=== PATIENT | male | born 1945 | race Caucasian/White ===

== ENCOUNTER 2020-09-20 07:38 | Day surgery (SDC) | payer BC, SELFPAY ==
[2020-09-15 13:57] VITALS: BMI 26.0
--- NOTE | 2020-09-17 11:14 | P.CONAN_ITS ---
Documented by User: Tiffanie Breen 09/17/20 11:16 HPI - Anesthesia Eval Consult details Narrative: 75yo M for Colonoscopy: screening [facility] Past Medical History Medical History Arthritis Diabetes Elevated cholesterol History of blood transfusion RUDY on CPAP Surgical History Surgical History (Updated 09/15/20 @ 13:44 by Jumana Horton) History of lumbar laminectomy Hx of colonoscopy Hx of tonsillectomy Social History Social History Smoking Status: Former smoker Smoking Quit Date: 1967 Use of substances other than those prescribed or required for medical reasons: No Have you been hit, kicked, punched, or otherwise hurt by someone within the past year? If so, by whom?: No Advance Directives: No Advance Directives Information Provided: No Advance Directives on File: No Recently lost weight without trying: No Meds Allergies Allergy/AdvReac Type Severity Reaction Status Date / Time tetracycline [From Sumycin] Allergy Hives Verified 09/15/20 13:43 Home Medications Medication Instructions Recorded Confirmed Type aspirin [Aspir-81] 81 mg PO DAILY 09/15/20 09/15/20 History bimatoprost [Lumigan] 1 drp OPHTHALMIC (EYE) BEDTIME 09/15/20 09/15/20 History coenzyme Q10 [CoQ-10] 100 mg PO DAILY 09/15/20 09/15/20 History dorzolamide-timolol 1 drp OPHTHALMIC-LEFT BID 09/15/20 09/15/20 History empagliflozin [Jardiance] 1 tab PO DAILY 09/15/20 09/15/20 History ibuprofen 800 mg PO Q8H PRN 09/15/20 09/15/20 History insulin aspart U-100 [Novolog 4 unit SUBCUT 09/15/20 History Flexpen U-100 Insulin] insulin glargine [Lantus Solostar 10 unit SUBCUT BEDTIME 09/15/20 09/15/20 History U-100 Insulin] lisinopril 1 tab PO DAILY 09/15/20 09/15/20 History lutein-zeaxanthin cap PO 09/15/20 History metformin 1 tab PO BID 09/15/20 09/15/20 History prasterone (dhea) [DHEA] 25 mg PO DAILY 09/15/20 09/15/20 History simvastatin 1 tab PO BEDTIME 09/15/20 09/15/20 History Exam Exam Date and Time: September 17, 2020 1114 Height,Weight and Vital Signs: Height 6 ft Weight 87.09 kg Assessment and Plan Assessment Anesthesia Assessment: Chart Reviewed Documented by User: Raúl Blevins 09/20/20 08:40 [facility] Past Medical History Medical History Arthritis Diabetes Elevated cholesterol History of blood transfusion RUDY on CPAP Surgical History Surgical History (Updated 09/15/20 @ 13:44 by Jumana Horton) History of lumbar laminectomy Hx of colonoscopy Hx of tonsillectomy Social History Social History Smoking Status: Former smoker Smoking Quit Date: 1967 Use of substances other than those prescribed or required for medical reasons: No Have you been hit, kicked, punched, or otherwise hurt by someone within the past year? If so, by whom?: No Advance Directives: No Advance Directives Information Provided: No Advance Directives on File: No Recently lost weight without trying: No Meds Allergies Allergy/AdvReac Type Severity Reaction Status Date / Time tetracycline [From Sumycin] Allergy Hives Verified 09/15/20 13:43 Home Medications Medication Instructions Recorded Confirmed Type aspirin [Aspir-81] 81 mg PO DAILY 09/15/20 09/15/20 History bimatoprost [Lumigan] 1 drp OPHTHALMIC (EYE) BEDTIME 09/15/20 09/15/20 History coenzyme Q10 [CoQ-10] 100 mg PO DAILY 09/15/20 09/15/20 History dorzolamide-timolol 1 drp OPHTHALMIC-LEFT BID 09/15/20 09/15/20 History empagliflozin [Jardiance] 1 tab PO DAILY 09/15/20 09/15/20 History ibuprofen 800 mg PO Q8H PRN 09/15/20 09/15/20 History insulin aspart U-100 [Novolog 4 unit SUBCUT 09/15/20 History Flexpen U-100 Insulin] insulin glargine [Lantus Solostar 10 unit SUBCUT BEDTIME 09/15/20 09/15/20 History U-100 Insulin] lisinopril 1 tab PO DAILY 09/15/20 09/15/20 History lutein-zeaxanthin cap PO 09/15/20 History metformin 1 tab PO BID 09/15/20 09/15/20 History prasterone (dhea) [DHEA] 25 mg PO DAILY 09/15/20 09/15/20 History simvastatin 1 tab PO BEDTIME 09/15/20 09/15/20 History Exam Airway Mallampati Class: III TM Dist: >3cm Neck ROM: Full Loose/Missing/Broken Teeth: Yes Heart: RRR Assessment and Plan Assessment Anesthesia Assessment: Anesthesia Plan Discussed Final Anesthetic Review NPO: Yes ASA Class: III Final Preanesthetic Review: Consent Obtained/Reviewed Anesthetic Plan Anesthetic Plan: MAC:
[2020-09-20 08:07] VITALS: BP 135/68; PULSE 61; RESP 18; TEMP 35.9; O2SAT 98
[2020-09-20] MEDS: Lactated Ringers 1,000 ML 100 ML IVCONT (08:12)
[2020-09-20 08:15] LABS: Glucose, Whole Blood 103 mg/dL (60-115)
[2020-09-20 09:49] VITALS: BP 101/59; PULSE 73; RESP 16; TEMP 36.1; O2SAT 96
--- NOTE | 2020-09-20 09:53 | PM.OP ---
Brief Operative Note Date of procedure: 09/20/20 Pre-op diagnosis: Abd pain, screening Post-op diagnosis: other (Gastritis, duodenitis, colon polyp) Procedure: EGD with biopsy, colonoscopy to cecum and TI with biopsy Surgeon: Pradip Wilkerson Anesthesia: MAC Estimated blood loss (mL): 3.0 Pathology: other (A. Gastric antrum B. Proximal stomach C. Polyp at 30 cm) Condition: stable Disposition: PACU
[2020-09-20 10:04] VITALS: BP 123/65; PULSE 53; RESP 18; TEMP 36.1; O2SAT 99
--- NOTE | 2020-09-20 10:10 | OP_ITS ---
SURGEON: Pradip Wilkerson MD INDICATIONS: The patient presents for evaluation of previous abdominal pain and colorectal cancer screening. Full consent has been obtained from him for this, including risks of bleeding and perforation. PREOPERATIVE DIAGNOSIS: POSTOPERATIVE DIAGNOSIS: PROCEDURE PERFORMED: Esophagogastroduodenoscopy with biopsies, and colonoscopy to cecum and terminal ileum with biopsy and removal of polyp. ESTIMATED BLOOD LOSS: COMPLICATIONS: ANESTHESIA: Monitored anesthesia care. ASSISTANTS: SPECIMENS: PREOPERATIVE DIAGNOSES: Colorectal cancer screening and abdominal pain. POSTOPERATIVE DIAGNOSES: Colorectal cancer screening and abdominal pain, duodenitis, gastritis, hiatal hernia, colon polyp, diverticulosis, and internal hemorrhoids. DESCRIPTION OF PROCEDURE: The patient was placed in the left lateral decubitus position. The Olympus video gastroscope was passed in the posterior oropharynx and upper esophagus under direct vision. The scope was passed slowly into the distal esophagus. The gastroesophageal junction appeared normal at 38 cm. There was no sign of any esophagitis nor Corbett's mucosa. The scope was entered into the stomach. There was a small hiatal hernia. The scope was advanced to the pylorus and duodenum cannulated to the descending portion. The duodenum including the bulb was carefully inspected. There was some evidence of some duodenitis with less than 5 mm erosions in the duodenal bulb, but no ulceration or mass. Scope was withdrawn back into the stomach. The gastric antrum and body had changes consistent with a chronic gastritis with some edema and erythema. There were no erosions or ulceration. There was good peristalsis. Scope was retroflexed visualizing the proximal stomach carefully, which appeared normal other than an approximately 10 mm area of gastritis in the proximal stomach. There was no ulceration nor mass. I did obtain biopsies from the gastric antrum and from the area of gastritis in the proximal stomach. The scope was withdrawn back into the esophagus. The esophageal mucosa appeared normal. Scope was withdrawn from the patient. He was turned around for the colonoscopy. The digital rectal exam revealed no abnormalities. The Olympus video pediatric colonoscope was entered into the rectum and advanced easily to the cecum. Once in the cecum, I did identify normal-appearing cecal pouch with appendiceal orifice and a normal-appearing ileocecal valve. The terminal ileum was cannulated and appeared normal. The scope was withdrawn back in the colon. The entire cecum and ileocecal valve appeared normal. The scope was slowly withdrawn assessing all mucosal surfaces carefully. Preparation was excellent. At 30 cm, was a flat approximately 3 or 4 mm polyp, which was biopsied and completely removed with cold biopsy forceps. I did not visualize any other polyps, colitis, nor angiodysplasia. There was a mild amount of sigmoid diverticulosis. In the rectum, scope was retroflexed visualizing small internal hemorrhoids, but no other pathology. The rectal mucosa appeared normal. The scope was straightened out and withdrawn from the patient. He tolerated the procedure well and was returned to the recovery area in stable condition. IMPRESSION: 1. Mild erosive duodenitis. 2. Gastritis. 3. Hiatal hernia. 4. Small colon polyp. 5. Diverticulosis. 6. Internal hemorrhoids. PLAN: The results of the biopsy will be checked. Given the previous history of abdominal pain and today's findings, I suspect he may have had an ulcer that healed. He had been on aspirin daily and was using some ibuprofen. Given these findings today, I advised him to stay off all aspirin and NSAIDs long-term as I do not see any history of underlying coronary artery disease or previous stroke in his medical history. I did advise him to speak with his primary care physician about that as well. I shall start him on famotidine 40 mg each evening. I would have him stay on that 2 months and then p.r.n. thereafter. Given no associated complication in regard to peptic ulcer disease, I do not think he needs to be on long-term H2 blockers. Given the minimal findings on the colonoscopy, I do not think he will need any further screening colonoscopies in the future even if the polyp is a tubular adenoma. This has been discussed with his . If things are stable, he will see me on a p.r.n. basis. MD GENE Yanez/ELOY / [id number] VARSHA
--- NOTE | 2020-09-20 10:42 | HO.POSTANES ---
Post Anesthesia Evaluation Post Anesthesia Evaluation Vital Signs: Vital Signs Temp Pulse Resp BP Pulse Ox 09/20/20 10:04 97 F 53 18 123/65 99 09/20/20 09:49 97 F 73 16 101/59 L 96 09/20/20 08:07 96.7 F L 61 18 135/68 98 Anesthesia: Monitored Mental Status: Awake Pain Control: Satisfactory Nausea/Vomiting: None Hydration: Adequate Anesthesia-Related Issues: No Anes. Related Issues
== END 2020-09-20 11:05 | disposition home or self-care (01) ==
PROVIDERS: PCP Internal Medicine; Visit Provider Internal Medicine
PROC: (CPT 45380; principal; 2020-09-20 08:30)
DX: Z12.11 Encounter for screening for malignant neoplasm of colon (principal); K63.5 Polyp of colon; K57.30 Diverticulosis of large intestine without perforation or abscess without bleeding; K64.8 Other hemorrhoids; K29.50 Unspecified chronic gastritis without bleeding; K29.80 Duodenitis without bleeding; K44.9 Diaphragmatic hernia without obstruction or gangrene; E11.9 Type 2 diabetes mellitus without complications; G47.33 Obstructive sleep apnea (adult) (pediatric); E78.00 Pure hypercholesterolemia, unspecified; Z79.4 Long term (current) use of insulin; Z79.82 Long term (current) use of aspirin; Z79.899 Other long term (current) drug therapy; Z87.891 Personal history of nicotine dependence; Z88.1 Allergy status to other antibiotic agents
CPT/HCPCS: 45380; 43239; 82947; 88305; 88342

== ENCOUNTER 2020-11-03 06:54 | Outpatient (REF) | payer BC, SELFPAY | END 2020-11-03 06:55 | disposition home or self-care (01) | LOC: HO.LAB 06:54 | PROVIDERS: Visit Provider Internal Medicine | DX: Z20.828 Contact with and (suspected) exposure to other viral communicable diseases (principal) | CPT/HCPCS: C9803; U0003 ==

== ENCOUNTER 2021-03-22 10:58 | Outpatient (REF) | payer BC, SELFPAY ==
[2021-03-22 12:23] LABS: Estimated Average Glucose 180 mg/dL; Hemoglobin A1c % 7.9 %
[2021-03-22 12:44] LABS: Alanine Aminotransferase 21 U/L (0-40); Albumin Level 4.1 g/dL (3.5-5.0); Alkaline Phosphatase 65 U/L (39-117); Aspartate Amino Transferase 18 U/L (5-37); Bilirubin Direct 0.2 mg/dL (0.0-0.5); Bilirubin Total 0.3 mg/dL (0.0-1.0); Cholesterol 135 mg/dL; Glucose Fasting 141 mg/dL (60-99); HDL Cholesterol 44 mg/dL; LDL Cholesterol Calculated 74 mg/dl; Total Protein 6.1 g/dL (6.5-8.0); Triglycerides 88 mg/dL
[2021-03-22 12:58] LABS: Reflex LDLD? No
== END 2021-03-22 10:59 | disposition home or self-care (01) ==
LOC: HO.LNP 10:58
PROVIDERS: PCP Internal Medicine; Visit Provider Internal Medicine
DX: E78.00 Pure hypercholesterolemia, unspecified (principal); E11.40 Type 2 diabetes mellitus with diabetic neuropathy, unspecified
CPT/HCPCS: 80061; 80076; 82947; 83036

== ENCOUNTER 2021-10-13 10:32 | Outpatient (REF) | payer BC, SELFPAY ==
[2021-10-13 10:35] LABS: MANUAL DIFF FLAG NO
[2021-10-13 10:55] LABS: Basophils Absolute Auto 0.1 X10*3/uL (0.0-0.2); Eosinophils Absolute Auto 0.3 X10*3/uL (0.0-0.4); Eosinophils Percent Auto 5.2 % (0-4); Hemoglobin 15.2 g/dl (14.0-18.0); Imm Gran Abs Auto 0.01 X10*3/uL (0.00-0.03); Imm Gran Pct Auto 0.2 % (0.0-0.4); Lymphocytes Absolute Auto 1.5 X10*3/uL (1.2-4.9); Lymphocytes Percent Auto 29.1 % (20-40); Mean Corpuscular Hemoglobin 31.3 pg (27.0-33.0); Mean Corpuscular Volume 94.7 fL (80.0-98.0); Mean Platelet Volume 10.1 fL (9.4-12.4); Monocytes Absolute Auto 0.5 X10*3/uL (0.1-1.2); Monocytes Percent Auto 10.1 % (2-11); Neutrophils Absolute Auto 2.8 x10*3/uL (2.0-8.3); Neutrophils Percent Auto 54.4 % (45-73); Platelet Count 248 X10*3/uL (160-400); Red Blood Count 4.86 X10*6/uL (4.60-5.80); White Blood Count 5.2 X10*3/uL (4.8-10.8)
[2021-10-13 11:08] LABS: Alanine Aminotransferase 26 U/L (0-40); Albumin Level 4.2 g/dL (3.5-5.0); Alkaline Phosphatase 56 U/L (39-117); Anion Gap 11 (12-20); Aspartate Amino Transferase 25 U/L (5-37); Bilirubin Total 0.7 mg/dL (0.0-1.0); Blood Urea Nitrogen 19 mg/dL (9-16); Calcium 8.8 mg/dL (8.4-10.2); Carbon Dioxide 26 mmol/L (22-29); Chloride 105 mmol/L (96-108); Cholesterol 158 mg/dL; Estimated Average Glucose 180 mg/dL; Estimated Glomerular Filt Rate > 60; Glucose Fasting 150 mg/dL (60-99); HDL Cholesterol 45 mg/dL; Hemoglobin A1c % 7.9 %; LDL Cholesterol Calculated 92 mg/dl; Potassium 4.4 mmol/L (3.3-5.1); Sodium 138 mmol/L (135-145); Total Protein 6.3 g/dL (6.5-8.0); Triglycerides 106 mg/dL
[2021-10-13 11:12] LABS: Appearance Urine CLEAR; Color Urine YELLOW; Glucose Urine UA >=1000 MG/DL (NEG); Leukocyte Esterase Urine NEG (NEG); Nitrite Urine NEG (NEG); PH 5.5 (5.0-8.0); Specific Gravity - Urine 1.015 (1.005-1.025); Urine Blood NEG (NEG); Urine Ketones 15 MG/DL (NEG); Urine Protein NEG (NEG-TRACE)
[2021-10-13 11:30] LABS: Creatinine Urine 73.58 mg/dL; Microalbumin Urine < 5.0 mg/L
[2021-10-13 11:31] LABS: PSA,Total (Free>4and<10) 0.47 ng/mL (0.00-4.00)
[2021-10-13 11:55] LABS: RBC Urine 0 /HPF (0); Squamous Epithelial Cell Urine TRACE /LPF; WBC Urine 0-2 /HPF (0-4)
== END 2021-10-13 10:33 | disposition home or self-care (01) ==
LOC: HO.LNP 10:32
PROVIDERS: Visit Provider Internal Medicine
DX: Z00.00 Encounter for general adult medical examination without abnormal findings (principal); Z12.5 Encounter for screening for malignant neoplasm of prostate; R79.9 Abnormal finding of blood chemistry, unspecified; I10 Essential (primary) hypertension; E78.00 Pure hypercholesterolemia, unspecified; E11.40 Type 2 diabetes mellitus with diabetic neuropathy, unspecified
CPT/HCPCS: 80053; 80061; 81001; 81003; 82043; 83036; 84153; 85025

== ENCOUNTER 2022-04-10 10:36 | Outpatient (REF) | payer BC, SELFPAY ==
[2022-04-10 11:01] LABS: Alanine Aminotransferase 28 U/L (0-40); Alkaline Phosphatase 59 U/L (39-117); Aspartate Amino Transferase 22 U/L (5-37); Bilirubin Direct 0.3 mg/dL (0.0-0.5); Bilirubin Total 0.6 mg/dL (0.0-1.0); Cholesterol 137 mg/dL; Glucose Fasting 112 mg/dL (60-99); HDL Cholesterol 40 mg/dL; LDL Cholesterol Calculated 82 mg/dl; Total Protein 6.3 g/dL (6.5-8.0); Triglycerides 76 mg/dL
[2022-04-10 11:25] LABS: Estimated Average Glucose 177 mg/dL; Hemoglobin A1c % 7.8 %
[2022-04-10 11:49] LABS: Reflex LDLD? No
== END 2022-04-10 10:37 | disposition home or self-care (01) ==
LOC: HO.LNP 10:36
PROVIDERS: Visit Provider Internal Medicine
DX: E11.40 Type 2 diabetes mellitus with diabetic neuropathy, unspecified (principal); E78.00 Pure hypercholesterolemia, unspecified
CPT/HCPCS: 80061; 80076; 82947; 83036

== ENCOUNTER 2022-10-16 10:56 | Outpatient (REF) | payer BC, SELFPAY ==
[2022-10-16 11:01] LABS: MANUAL DIFF FLAG NO
[2022-10-16 11:35] LABS: Basophils Absolute Auto 0.1 X10*3/uL (0.0-0.2); Basophils Percent Auto 0.7 % (0-2); Eosinophils Absolute Auto 0.1 X10*3/uL (0.0-0.4); Eosinophils Percent Auto 1.4 % (0-4); Hematocrit 46.5 % (42.0-52.0); Hemoglobin 15.1 g/dl (14.0-18.0); Imm Gran Abs Auto 0.03 X10*3/uL (0.00-0.03); Imm Gran Pct Auto 0.4 % (0.0-0.4); Lymphocytes Percent Auto 26.5 % (20-40); Mean Corpuscular HGB Conc 32.5 g/dl (31.0-36.0); Mean Corpuscular Hemoglobin 31.5 pg (27.0-33.0); Mean Corpuscular Volume 96.9 fL (80.0-98.0); Mean Platelet Volume 10.1 fL (9.4-12.4); Monocytes Absolute Auto 0.7 X10*3/uL (0.1-1.2); Monocytes Percent Auto 9.1 % (2-11); Neutrophils Absolute Auto 4.8 x10*3/uL (2.0-8.3); Neutrophils Percent Auto 61.9 % (45-73); Platelet Count 278 X10*3/uL (160-400); White Blood Count 7.7 X10*3/uL (4.8-10.8)
[2022-10-16 11:44] LABS: Appearance Urine Clear; Color Urine Yellow; Glucose Urine UA >=1000 mg/dL (Negative); Leukocyte Esterase Urine Negative (Negative); Nitrite Urine Negative (Negative); PH 5.5 (5.0-9.0); Specific Gravity - Urine >= 1.030 (1.005-1.025); UMIC TRIGGER UA YES; Urine Blood Negative (Negative); Urine Ketones 15 mg/dL (Negative); Urine Protein Negative (Neg-Trace)
[2022-10-16 11:58] LABS: Bacteria Urine None Seen (None Seen); Hyaline Casts Urine 0-2 /LPF (0-2); RBC Urine 0-2 /HPF (0-2); Squamous Epithelial Cell Urine 0-2 /HPF (0-2); WBC Urine 0-5 /HPF (0-5)
[2022-10-16 12:10] LABS: Alanine Aminotransferase 20 U/L (0-40); Albumin Level 4.1 g/dL (3.5-5.0); Alkaline Phosphatase 62 U/L (39-117); Anion Gap 11 (12-20); Aspartate Amino Transferase 19 U/L (5-37); Blood Urea Nitrogen 27 mg/dL (9-16); Carbon Dioxide 26 mmol/L (22-29); Chloride 107 mmol/L (96-108); Cholesterol 142 mg/dL; Estimated Glomerular Filt Rate > 60; Glucose Fasting 107 mg/dL (60-99); HDL Cholesterol 49 mg/dL; LDL Cholesterol Calculated 81 mg/dl; PSA,Total (Free>4and<10) 0.49 ng/mL (0.00-4.00); Potassium 4.8 mmol/L (3.3-5.1); Sodium 139 mmol/L (135-145); Total Protein 6.2 g/dL (6.5-8.0); Triglycerides 64 mg/dL
[2022-10-16 12:22] LABS: Creatinine Urine 92.18 mg/dL; Microalbum/Creatinine Ratio Ur 8.6 ug/mg cr
[2022-10-16 12:29] LABS: Estimated Average Glucose 171 mg/dL; Hemoglobin A1c % 7.6 %
== END 2022-10-16 10:57 | disposition home or self-care (01) ==
LOC: HO.LNP 10:56
PROVIDERS: Visit Provider Internal Medicine
DX: Z00.00 Encounter for general adult medical examination without abnormal findings (principal); Z12.5 Encounter for screening for malignant neoplasm of prostate; E11.40 Type 2 diabetes mellitus with diabetic neuropathy, unspecified; E78.00 Pure hypercholesterolemia, unspecified; I10 Essential (primary) hypertension
CPT/HCPCS: 80053; 80061; 81001; 82043; 83036; 84153; 85025

== ENCOUNTER 2023-04-20 11:52 | Outpatient (REF) | payer BC, SELFPAY ==
[2023-04-20 12:40] LABS: Estimated Average Glucose 171 mg/dL; Hemoglobin A1c % 7.6 %
[2023-04-20 12:47] LABS: Alanine Aminotransferase 25 U/L (0-40); Alkaline Phosphatase 57 U/L (39-117); Aspartate Amino Transferase 23 U/L (5-37); Bilirubin Direct 0.2 mg/dL (0.0-0.5); Bilirubin Total 0.6 mg/dL (0.0-1.0); Cholesterol 134 mg/dL; Glucose Fasting 113 mg/dL (60-99); HDL Cholesterol 47 mg/dL; LDL Cholesterol Calculated 73 mg/dl; Total Protein 5.9 g/dL (6.5-8.0); Triglycerides 73 mg/dL
[2023-04-20 13:31] LABS: Reflex LDLD? No
== END 2023-04-20 11:53 | disposition home or self-care (01) ==
LOC: HO.LNP 11:52
PROVIDERS: Visit Provider Internal Medicine
DX: E11.40 Type 2 diabetes mellitus with diabetic neuropathy, unspecified (principal); E78.00 Pure hypercholesterolemia, unspecified
CPT/HCPCS: 80061; 80076; 82947; 83036

== ENCOUNTER 2023-05-16 12:52 | Outpatient (REF) | payer BC, SELFPAY ==
--- NOTE | ~2023-05-16 | US_ITS ---
EXAMINATION: US VENOUS ULTRASOUND WITH DOPPLER LOWER EXTREMITY, RIGHT CLINICAL INFORMATION: Right leg edema, rule out DVT. COMPARISON: None available. TECHNIQUE: Ultrasound of the deep veins is performed from the hip to the calf with compression sonography and color and pulse Doppler assessment. Spectral analysis with color-flow imaging is performed. FINDINGS: There is normal venous compression and respiratory variation and augmented flow. The visualized common femoral vein, superficial femoral vein, profunda femoral vein, popliteal vein, and the trifurcation region shows no evidence of deep venous thrombosis. No right popliteal cyst. The subcutaneous soft tissues are unremarkable. If the patient's symptoms persist, followup ultrasound in 5 days 7 days might be of value to exclude proximal propagation from a non-visualized calf vein. US/US venous duplex LE RT IMPRESSION: No evidence for deep venous thrombosis in the visualized veins of the right lower extremity.
== END 2023-05-16 12:53 | disposition home or self-care (01) ==
LOC: HO.US 12:52
PROVIDERS: PCP Internal Medicine; Visit Provider Internal Medicine
DX: R60.0 Localized edema (principal)
CPT/HCPCS: 93971

== ENCOUNTER 2023-08-15 09:23 | Outpatient (REF) | payer BC, SELFPAY ==
--- NOTE | 2023-08-15 09:27 | EMG_ITS ---
Please see scanned EMG / Nerve Conduction Report. MTDD
== END 2023-08-15 09:24 | disposition home or self-care (01) ==
LOC: HO.NEURO 09:23
PROVIDERS: PCP Internal Medicine; Visit Provider Internal Medicine
DX: E11.40 Type 2 diabetes mellitus with diabetic neuropathy, unspecified (principal)
CPT/HCPCS: 95885; 95909

== ENCOUNTER 2023-10-25 10:18 | Outpatient (REF) | payer BC, SELFPAY ==
[2023-10-25 10:22] LABS: MANUAL DIFF FLAG NO
[2023-10-25 10:42] LABS: Basophils Absolute Auto 0.1 X10*3/uL (0.0-0.2); Basophils Percent Auto 0.9 % (0-2); Eosinophils Absolute Auto 0.2 X10*3/uL (0.0-0.4); Eosinophils Percent Auto 3.1 % (0-4); Hematocrit 49.6 % (42.0-52.0); Hemoglobin 16.2 g/dl (14.0-18.0); Imm Gran Abs Auto 0.02 X10*3/uL (0.00-0.03); Imm Gran Pct Auto 0.3 % (0.0-0.4); Lymphocytes Absolute Auto 1.5 X10*3/uL (1.2-4.9); Lymphocytes Percent Auto 23.2 % (20-40); Mean Corpuscular HGB Conc 32.7 g/dl (31.0-36.0); Mean Corpuscular Hemoglobin 31.8 pg (27.0-33.0); Mean Corpuscular Volume 97.4 fL (80.0-98.0); Mean Platelet Volume 9.9 fL (9.4-12.4); Monocytes Absolute Auto 0.6 X10*3/uL (0.1-1.2); Monocytes Percent Auto 9.4 % (2-11); Neutrophils Absolute Auto 4.1 x10*3/uL (2.0-8.3); Neutrophils Percent Auto 63.1 % (45-73); Platelet Count 267 X10*3/uL (160-400); Red Blood Count 5.09 X10*6/uL (4.60-5.80); White Blood Count 6.5 X10*3/uL (4.8-10.8)
[2023-10-25 10:50] LABS: Appearance Urine Clear; Color Urine Yellow; Glucose Urine UA >=1000 mg/dL (Negative); Leukocyte Esterase Urine Negative (Negative); Nitrite Urine Negative (Negative); PH 5.5 (5.0-9.0); Specific Gravity - Urine 1.025 (1.005-1.025); UMIC TRIGGER UACC YES; Urine Blood Negative (Negative); Urine Ketones Negative (Negative); Urine Protein Negative (Neg-Trace)
[2023-10-25 10:52] LABS: Estimated Average Glucose 166 mg/dL; Hemoglobin A1c % 7.4 % (<6.0)
[2023-10-25 10:54] LABS: Alanine Aminotransferase 24 U/L (0-40); Albumin Level 4.1 g/dL (3.5-5.0); Alkaline Phosphatase 54 U/L (39-117); Anion Gap 11 (12-20); Aspartate Amino Transferase 23 U/L (5-37); Bacteria Urine None Seen (None Seen); Bilirubin Total 0.6 mg/dL (0.0-1.0); Blood Urea Nitrogen 20 mg/dL (9-16); Calcium 9.4 mg/dL (8.4-10.2); Carbon Dioxide 28 mmol/L (22-29); Chloride 108 mmol/L (96-108); Cholesterol 133 mg/dL (<200); Estimated Glomerular Filt Rate > 60; Glucose Fasting 143 mg/dL (60-99); HDL Cholesterol 44 mg/dL (>40); Hyaline Casts Urine 0-2 /LPF (0-2); LDL Cholesterol Calculated 67 mg/dL (<100); Potassium 4.7 mmol/L (3.3-5.1); RBC Urine 0-2 /HPF (0-2); Sodium 142 mmol/L (135-145); Squamous Epithelial Cell Urine 0-2 /HPF (0-2); Total Protein 6.6 g/dL (6.5-8.0); Triglycerides 110 mg/dL (<150); WBC Urine 0-5 /HPF (0-5)
[2023-10-25 11:18] LABS: PSA,Total (Free>4and<10) 0.51 ng/mL (0.00-4.00)
[2023-10-25 11:21] LABS: Creatinine Urine 49.72 mg/dL; Microalbumin Urine < 5.0 mg/L
== END 2023-10-25 10:19 | disposition home or self-care (01) ==
LOC: HO.LNP 10:18
PROVIDERS: Visit Provider Internal Medicine
DX: Z00.00 Encounter for general adult medical examination without abnormal findings (principal); Z12.5 Encounter for screening for malignant neoplasm of prostate; E11.40 Type 2 diabetes mellitus with diabetic neuropathy, unspecified; I10 Essential (primary) hypertension
CPT/HCPCS: 80053; 80061; 81001; 82043; 82570; 83036; 84153; 85025

== ENCOUNTER 2024-04-24 10:35 | Outpatient (REF) | payer BC, SELFPAY ==
[2024-04-24 11:32] LABS: Estimated Average Glucose 157 mg/dL; Hemoglobin A1c % 7.1 % (<6.0)
[2024-04-24 11:56] LABS: Alanine Aminotransferase 21 U/L (0-40); Albumin Level 4.2 g/dL (3.5-5.0); Alkaline Phosphatase 62 U/L (39-117); Aspartate Amino Transferase 25 U/L (5-37); Bilirubin Direct 0.2 mg/dL (0.0-0.5); Bilirubin Total 0.6 mg/dL (0.0-1.0); Cholesterol 124 mg/dL (<200); Glucose Fasting 93 mg/dL (60-99); HDL Cholesterol 50 mg/dL (>40); LDL Cholesterol Calculated 61 mg/dL (<100); Total Protein 6.4 g/dL (6.5-8.0); Triglycerides 66 mg/dL (<150)
[2024-04-24 12:04] LABS: Reflex LDLD? No
== END 2024-04-24 10:36 | disposition home or self-care (01) ==
LOC: HO.LNP 10:35
PROVIDERS: Visit Provider Internal Medicine
DX: E78.00 Pure hypercholesterolemia, unspecified (principal); E11.40 Type 2 diabetes mellitus with diabetic neuropathy, unspecified
CPT/HCPCS: 80061; 80076; 82947; 83036

== ENCOUNTER 2024-11-04 12:19 | Outpatient (REF) | payer BC, SELFPAY ==
[2024-11-04 12:22] LABS: MANUAL DIFF FLAG NO
[2024-11-04 12:39] LABS: Basophils Percent Auto 0.8 % (0-2); Eosinophils Absolute Auto 0.2 X10*3/uL (0.0-0.4); Eosinophils Percent Auto 3.3 % (0-4); Hematocrit 45.5 % (42.0-52.0); Hemoglobin 14.7 g/dl (14.0-18.0); Imm Gran Abs Auto 0.01 X10*3/uL (0.00-0.03); Imm Gran Pct Auto 0.2 % (0.0-0.4); Lymphocytes Absolute Auto 1.4 X10*3/uL (1.2-4.9); Lymphocytes Percent Auto 27.7 % (20-40); Mean Corpuscular HGB Conc 32.3 g/dl (31.0-36.0); Mean Corpuscular Hemoglobin 31.8 pg (27.0-33.0); Mean Corpuscular Volume 98.5 fL (80.0-98.0); Mean Platelet Volume 10.2 fL (9.4-12.4); Monocytes Absolute Auto 0.5 X10*3/uL (0.1-1.2); Neutrophils Absolute Auto 2.8 x10*3/uL (2.0-8.3); Platelet Count 215 X10*3/uL (160-400); Red Blood Count 4.62 X10*6/uL (4.60-5.80); Red Cell Distribution Width 13.7 % (11.0-16.0); White Blood Count 4.9 X10*3/uL (4.8-10.8)
[2024-11-04 12:45] LABS: Appearance Urine Clear; Color Urine Yellow; Glucose Urine UA >=1000 mg/dL (Negative); Leukocyte Esterase Urine Negative (Negative); Nitrite Urine Negative (Negative); PH 5.5 (5.0-9.0); Specific Gravity - Urine 1.025 (1.005-1.025); UMIC TRIGGER UACC YES; Urine Blood Negative (Negative); Urine Ketones 15 mg/dL (Negative); Urine Protein Negative (Neg-Trace)
[2024-11-04 12:48] LABS: Alanine Aminotransferase 23 U/L (0-40); Albumin Level 3.9 g/dL (3.5-5.0); Alkaline Phosphatase 53 U/L (39-117); Anion Gap 12 (12-20); Aspartate Amino Transferase 30 U/L (5-37); Bilirubin Total 0.9 mg/dL (0.0-1.0); Blood Urea Nitrogen 19 mg/dL (9-16); Calcium 8.4 mg/dL (8.4-10.2); Carbon Dioxide 28 mmol/L (22-29); Chloride 106 mmol/L (96-108); Cholesterol 121 mg/dL (<200); Estimated Glomerular Filt Rate > 60; Glucose Fasting 140 mg/dL (60-99); HDL Cholesterol 47 mg/dL (>40); LDL Cholesterol Calculated 60 mg/dL (<100); Potassium 4.7 mmol/L (3.3-5.1); Sodium 141 mmol/L (135-145); Total Protein 6.2 g/dL (6.5-8.0); Triglycerides 74 mg/dL (<150)
[2024-11-04 12:49] LABS: Estimated Average Glucose 171 mg/dL; Hemoglobin A1c % 7.6 % (<6.0); Total Hemoglobin (HGBA1C) 3648.8359 umol/L
[2024-11-04 12:50] LABS: Bacteria Urine None Seen (None Seen); Hyaline Casts Urine 0-2 /LPF (0-2); RBC Urine 0-2 /HPF (0-2); Squamous Epithelial Cell Urine 0-2 /HPF (0-2); WBC Urine 0-5 /HPF (0-5)
[2024-11-04 13:10] LABS: PSA,Total (Free>4and<10) 0.67 ng/mL (0.00-4.00)
[2024-11-04 13:17] LABS: Creatinine Urine 54.18 mg/dL; Microalbumin Urine < 5.0 mg/L
== END 2024-11-04 12:20 | disposition home or self-care (01) ==
LOC: HO.LNP 12:19
PROVIDERS: Visit Provider Internal Medicine
DX: Z00.00 Encounter for general adult medical examination without abnormal findings (principal); I10 Essential (primary) hypertension; E11.40 Type 2 diabetes mellitus with diabetic neuropathy, unspecified; E78.00 Pure hypercholesterolemia, unspecified; Z12.5 Encounter for screening for malignant neoplasm of prostate
CPT/HCPCS: 80053; 80061; 81001; 82043; 82570; 83036; 84153; 85025

== ENCOUNTER 2025-11-09 10:42 | Outpatient (REF) | payer MEDICARE, SELFPAY ==
[2025-11-09 10:46] LABS: MANUAL DIFF FLAG NO
[2025-11-09 11:10] LABS: Hematocrit 39.8 % (42.0-52.0); Hemoglobin 12.9 g/dl (14.0-18.0); Imm Gran Abs Auto 0.02 X10*3/uL (0.00-0.03); Imm Gran Pct Auto 0.3 % (0.0-0.4); Lymphocytes Absolute Auto 1.4 X10*3/uL (1.2-4.9); Mean Corpuscular HGB Conc 32.4 g/dl (31.0-36.0); Mean Corpuscular Hemoglobin 31.5 pg (27.0-33.0); Mean Corpuscular Volume 97.1 fL (80.0-98.0); NRBC Abs Auto 0.000 X10*3/uL (0.0-0.012); NRBC Pct Auto 0.0 /100WBC (0.0-0.2); Platelet Count 325 X10*3/uL (160-400); Red Blood Count 4.10 X10*6/uL (4.60-5.80); White Blood Count 7.1 X10*3/uL (4.8-10.8)
[2025-11-09 11:15] LABS: Appearance Urine Clear; Glucose Urine UA >=1000 mg/dL (Negative); PH 5.5 (5.0-9.0); Specific Gravity - Urine >= 1.030 (1.005-1.025); UMIC TRIGGER UACC YES
[2025-11-09 11:22] LABS: Alanine Aminotransferase 16 U/L (0-40); Albumin Level 4.0 g/dL (3.5-5.0); Alkaline Phosphatase 92 U/L (39-117); Anion Gap 12 (12-20); Aspartate Amino Transferase 28 U/L (5-37); Blood Urea Nitrogen 26 mg/dL (9-16); Calcium 9.0 mg/dL (8.4-10.2); Carbon Dioxide 27 mmol/L (22-29); Chloride 107 mmol/L (96-108); Cholesterol 105 mg/dL (<200); Estimated Glomerular Filt Rate > 60; HDL Cholesterol 34 mg/dL (>40); Potassium 4.4 mmol/L (3.3-5.1); Sodium 142 mmol/L (135-145); Total Protein 6.2 g/dL (6.5-8.0); Triglycerides 75 mg/dL (<150)
[2025-11-09 11:44] LABS: PSA,Total (Free>4and<10) 0.81 ng/mL (0.00-4.00)
[2025-11-09 11:49] LABS: Microalbum/Creatinine Ratio Ur 5.7 ug/mg cr (<30)
--- OUTSIDE RECORDS SUMMARY | 2025-11-09 14:54 | XMS_ITS | Encounter Summary ---
Author Organization [facility] Address [address] [facility] [address] [place] [phone] Phone Care Team Providers Care County Treasurer Name Role Phone Perez Randall MD Primary Care Provider Encounter Details Date Type Department Care Team (Late st Contact Info) Description 11/13/2023 Procedure Pass [address] [place] [id number] Social History Tobacco Use Types Packs/Day Years Used Date Smoking Tobacco: Never Smokeless Tobacco: Never Alcohol Use Standard Drinks/Week Comments Never 0 (1 standard drink = 0.6 oz pur e alcohol) Education Answer Date Recorded Are you interested in more education? Not on benny e 03/24/2023 Are you concerned about learning? Not on file 03/24/2023 No 03/24/2023 No 03/24/2023 Digital Access Answer Date Recorded No 04/22/2023 No 04/22/2023 Reliable internet access at home? Not on file 04/22/2023 Device with a working camera? Not on file Sex and Gender Information Value Date Recorded Sex Assigned at Male 11/23/2023 3:37 PM EST Legal Sex Male 10:15 AM EST Gender Identity Male 11/23/2023 3:37 PM EST Sexual Orientation Not on file documented as of this encounter Plan of Treatment Not on file documented as of this encounter Visit Diagnoses Not on filedocumented in this encounter Care Teams County Treasurer Relationship Specialty Start Date End Date Perez Randall MD [address] [place] [address] [place] [address] PCP - General Internal Medicine 10/25/21 documented as of this encounter Additional Source Comments The information contained in this document represents components of the legal health record. It is not the complete legal health record.[facility]
--- OUTSIDE RECORDS SUMMARY | 2025-11-09 14:54 | XMS_ITS | Encounter Summary ---
Author Organization [facility] Address [address] [place] [phone] Phone Care Team Providers Care Horizontal Drill Operator Name Role Phone Perez Randall MD Primary Care Provider Encounter Details Date Type Department Care Team (Late st Contact Info) Description 10/25/2021 Procedure Pass [facility] [address] [place] [address] Social History Tobacco Use Types Packs/Day Years Used Date Smoking Tobacco: Never Assessed Sex and Gender Information Value Date Recorded Sex Assigned at Male 11/23/2023 3:37 PM EST Legal Sex Male 10:15 AM EST Gender Identity Male 11/23/2023 3:37 PM EST Sexual Orientation Not on file documented as of this encounter Plan of Treatment Not on file documented as of this encounter Visit Diagnoses Not on filedocumented in this encounter Care Teams Horizontal Drill Operator Relationship Specialty Start Date End Date Perez Randall MD [address] [place] [address] [place] [address] PCP - General Internal Medicine 10/25/21 documented as of this encounter Additional Source Comments The information contained in this document represents components of the legal health record. It is not the complete legal health record.[facility]
--- OUTSIDE RECORDS SUMMARY | 2025-11-09 14:54 | XMS_ITS | Clinical Summary ---
Author Organization [facility] Address [facility] [employer] [address] [address] Phone Care Team Providers Care Mortgage Branch Manager Name Role Phone Perez Randall MD Primary Care Provider Allergies Active Allergy Reactions Criticality Noted Date Comments Atorvastatin 01/01/2020 Other reaction(s): Weakness present Sumycin 250 Hives,Swelling 02/10/2022 Other tetracyclines ok Tetracycline Hives 07/16/2013 Medications rosuvastatin (CRESTOR) 20 MG tablet 2 Active mupirocin (BACTROBAN) 2 % ointment 2 Active metFORMIN (GLUCOPHAGE) 500 MG tablet Take 1 tablet by mouth 2 (two) times a day. 2 Active LANTUS SOLOSTAR U-100 INSULIN 100 unit/mL (3 mL) InPn injection pen 2 Active insulin aspart U-100 (NOVOLOG) 100 unit/mL (3 mL) injection pen INJECT 2 UNITS SUBCUTANEOUSLY ONCE DAILY AT LUNCH AND INJECT 10-12 UNITS FIVE TIMES A DAY BASED ON CARBOHYDRATE 2 Active NOVOLOG FLEXPEN U-100 INSULIN 100 unit/mL (3 mL) flexpen 2 Active empagliflozin (JARDIANCE) 25 mg tablet 12.5 mg. 2 Active clobetasol (TEMOVATE) 0.05 % cream 2 Active ACCU-CHEK GUIDE TEST STRIPS Strp strips 2 Active vit [id number]-[id number] fact-FA cmb #2 500-20-800 mcg-mg-mcg Tab as directed Orally 1000 mg Active cyanocobalamin , vitamin B-12, 1000 MCG tablet Take 1,000 mcg by mouth. Active dorzolamide-ti moloL (COSOPT) 22.3-6.8 mg/mL ophthalmic solution Active glucagon (GLUCAGEN HYPOKIT) 1 mg injection Use as directed as needed Indications: person with diabetes mellitus at risk of hypoglycemia Active insulin glargine-yfgn 100 unit/mL (3 mL) InPn Active lisinopril (PRINIVIL,ZEST RIL) 5 MG tablet Take 5 mg by mouth. Active cefadroxil (DURICEF) 500 MG capsule Take 1 capsule (500 mg total) by mouth 2 (two) times a day. 20 capsule 3 Active Active Problems No known active problems Social History Tobacco Use Types Packs/Day Years Used Date Smoking Tobacco: Never Smokeless Tobacco: Never Tobacco Cessation:Counseling Given: Not Answered Alcohol Use Standard Drinks/Week Comments Never 0 [...] PM EST Sexual Orientation Not on file Last Filed Vital Signs Vital Sign Reading Time Taken Comments Blood Pressure 134/80 10/21/2023 11:40 AM EST Pulse 77 10/21/2023 11:40 AM EST Temperature 36.8 C (98.2 F) 10/21/2023 11:40 AM EST Respiratory Rate - - Oxygen Saturation 97% 10/21/2023 11:40 AM EST Inhaled Oxygen Concentration - - Weight 88.9 kg (196 lb) 11/18/2023 9:34 AM EST Height 182.9 cm (6') 11/18/2023 9:34 AM EST Body Mass Index 26.58 11/18/2023 9:34 AM EST Plan of Treatment Health Maintenance Due Date Last Done Comments Adult Td,Tdap Booster 1945 CREATININE LEVEL 1945 LIPID PANEL 1947 POTASSIUM LEVEL 1947 DEPRESSION SCREENING 1959 HEPATITIS C SCREENING 1965 PNEUMOCOCCAL VACCINES (50+ years) (1 of 1 - PCV) 1997 ZOSTER VACCINES (1 of 2) 1997 RSV VACCINE (1 - 1-dose 75+ series) 2022 INFLUENZA VACCINE (#1) 2025 3, 08/04/2023, 10/28/2022, Additional history exists COVID-19 VACCINE ( - 2024- season) 2025 12/28/2021, 02/08/2021 SMOKING STATUS SCREENING (Once After 26 Yrs) Completed 10/21/2023 HEPATITIS A VACCINES Aged Out No long er eligible based on patient's age to complete this topic HIB VACCINES Aged Out No longer eligi ble based on patient's age to complete this topic MENINGOCOCCAL VACCINES (ACWY) Aged Out No longer eligible based on patient's age to complete this topic MENINGOCOCCAL VACCINES (B) Aged Out N o longer eligible based on patient's age to complete this topic Medical Devices Not on file Insurance [facility] [place] [address] [place] [address] MEDICARE A [facility] MEDICARE A MEDICARE A [facility] MEDICARE A [facility] MEDICARE A [facility] MEDICARE A [facility] MEDICARE A [facility] FEDERAL MEDICARE A Care Teams Mortgage Branch Manager Relationship Specialty Start Date End Date Perez Randall MD [address] [place] [address] [place] [address] PCP - General Internal Medicine 10/25/21 Additional Source Comments The information contained in this document represents components of the legal health record. It is not the complete legal health record.[facility]
== END 2025-11-09 10:43 | disposition home or self-care (01) ==
LOC: HO.LNP 10:42
PROVIDERS: Visit Provider Internal Medicine
DX: I10 Essential (primary) hypertension (principal); E11.40 Type 2 diabetes mellitus with diabetic neuropathy, unspecified; E78.00 Pure hypercholesterolemia, unspecified; Z12.5 Encounter for screening for malignant neoplasm of prostate
CPT/HCPCS: 80053; 80061; 81001; 82043; 82570; 83036; 84153; 85025